=== PATIENT | male | born 1935 | race Two or more races ===

== ENCOUNTER 2024-03-03 14:48 | Inpatient (IN) | payer OTHER ==
[~2024-03-03] VITALS: Ht 167.6 cm; Wt 56.2 kg
[2024-03-03] MEDS: SODIUM CHLORIDE 0.9% 1,000 ML IV ONE ×4 (15:06→17:28)
[2024-03-03 15:17] VITALS: PULSE 66; RESP 22; O2SAT 97
[2024-03-03 15:44] LABS: Hematocrit 28.3 % (41.0-53.0); Mean Corpuscular Hemoglobin 33.8 pg (28.0-32.0); Mean Corpuscular Hgb Conc. 35.3 g/dL (32.0-36.0); Mean Corpuscular Volume 95.9 fL (80.0-100.0); Platelet Count (auto) 244 10^3/uL (140-450); Red Blood Cells 2.95 10^6/uL (4.5-5.90); Red Cell Distribution Width 17.8 % (11.8-14.3); White Blood Cell 11.7 10^3/uL (4.4-10.8)
[2024-03-03 15:50] LABS: Basophils % (manual) 0 (0.0-2.0); Blast Cells 0; Eosinophils % (manual) 0 (0-7); Metamyelocytes % 0; Myelocytes % 0; Promyelocytes % 0; Reactive Lymphocytes 0
[2024-03-03] MEDS: metroNIDAZOLE 500MG/100ML 100 ML IV ONE (16:00)
[2024-03-03 16:03] LABS: Alanine Aminotransferase 34 U/L (7-40); Albumin 2.8 g/dL (3.2-4.8); Alkaline Phosphatase 85 U/L (46-116); Anion Gap 5 (5-15); Aspartate Aminotransferase 23 U/L (13-40); BUN/Creatinine Ratio 14.8 (10.0-20.0); Bilirubin, Total 0.9 mg/dL (0.2-1.0); Blood Urea Nitrogen 13 mg/dL (9-23); Calcium 8.6 mg/dL (8.7-10.4); Carbon Dioxide 27 mmol/L (20-30); Chloride 95 mmol/L (98-107); Glucose 125 mg/dL (74-106); Potassium 4.2 mmol/L (3.5-5.1); Sodium 127 mmol/L (136-145); Total Protein 4.6 g/dL (5.7-8.2)
[2024-03-03 16:07] LABS: Lactic Acid w/Reflex 3.6 mmol/L (0.4-2.0)
[2024-03-03 16:59] LABS: Anisocytosis Slight; Band Neutrophils % (manual) 5; Lymphocytes % (manual) 14 (10.0-50.0); Monocytes % (manual) 4 (0-12); Platelet Estimate Adequate
[2024-03-03] MEDS: cefTRIAXone 1GM/50ML D5W 50 ML IV SCH (17:50)
[2024-03-03 17:55] LABS: Urine Bacteria None Seen /hpf (None Seen)
[2024-03-03 18:11] LABS: Urine Blood Negative /uL (Negative); Urine Clarity Clear (Clear); Urine Color Light-Yellow (Yellow); Urine Protein, UAD Negative (Negative); Urine Specific Gravity 1.009 (1.001-1.035); Urine Urobilinogen Normal (Negative); Urine WBC 2 /hpf (0 - 3); Urine pH 6.5 (5.0-9.0)
[2024-03-03 18:15] LABS: % Iron Saturation 24.3 % (20-55)
[2024-03-03] MEDS ORDERED: DOCUSATE SOD 100 MG CAP PO PRN (18:45)
[2024-03-03] MEDS ORDERED: HYDROmorphone HCL 2 MG/ML VL/or syr IV PRN (18:45)
[2024-03-03] MEDS ORDERED: HYDROcodone-ACET 5/325MG TAB PO PRN (18:45)
[2024-03-03] MEDS ORDERED: ACETAMINOPHEN 325 MG TAB PO PRN (18:45)
[2024-03-03] MEDS ORDERED: ONDANSETRON HCL 4 MG/2 ML VIAL IV PRN (18:45)
[2024-03-03] MEDS ORDERED: MAALOX PLUS or MAALOX 30 ML PO PRN (18:45)
[2024-03-03 18:52] LABS: Erythrocyte Sedimentation Rate 20 mm/hr (0-20)
[2024-03-03 19:30] VITALS: PULSE 71; RESP 20; O2SAT 99
[2024-03-03] MEDS: IOHEXOL 300 MG/ML 100ML BOTTLE IJ ONE (20:47)
[2024-03-03] MEDS: SODIUM CHLOR 0.9% PF (SALINE LOCK) 10ML VIAL/SYR IV SCH (22:00)
[2024-03-03] MEDS: metroNIDAZOLE 500MG/100ML 100 ML IV SCH (22:07)
[2024-03-03 22:42] VITALS: BP 95/51; PULSE 65; RESP 17; TEMP 97.5; O2SAT 96
[2024-03-04] VITALS (8 sets, daily range): BP systolic 99–123; BP diastolic 52–63; PULSE 61–88; RESP 16–18; TEMP 97.3–98.4; O2SAT 94–97
[2024-03-04] MEDS ORDERED: GLIMEPIRIDE 2 MG TAB PO SCH (07:00)
[2024-03-04] MEDS ORDERED: ISOS10TA5 PO (07:18)
[2024-03-04] MEDS ORDERED: IRBE300T43 PO (07:18)
[2024-03-04] MEDS ORDERED: CLOP75TA28 PO (07:18)
[2024-03-04] MEDS ORDERED: FINA5TAB4 PO (07:18)
[2024-03-04] MEDS ORDERED: GLIM2TAB33 PO (07:18)
[2024-03-04] MEDS ORDERED: CARV-216 OR (07:18)
[2024-03-04] MEDS: FERROUS SULFATE 325mg EC TAB PO SCH (09:25)
[2024-03-04] MEDS ORDERED: CLOPIDOGREL BISULFATE 75 MG TAB PO SCH (10:00)
[2024-03-04] MEDS ORDERED: FINASTERIDE 5 MG TAB PO SCH (10:00)
[2024-03-04] MEDS ORDERED: ISOSORBIDE MONONITRATE 20 MG TAB PO SCH (10:00)
[2024-03-04] MEDS ORDERED: SODIUM CHLORIDE 1 GM TAB PO SCH (10:00)
[2024-03-04] MEDS ORDERED: CARVEDILOL 12.5 MG TAB PO SCH (10:00)
[2024-03-05 01:00] VITALS: BP 107/58; PULSE 69; RESP 18; TEMP 98; O2SAT 95
[2024-03-05 05:00] VITALS: BP 122/71; PULSE 71; RESP 18; TEMP 98; O2SAT 94
[2024-03-05] MEDS ORDERED: CIPR-173 PO (08:46)
[2024-03-05] MEDS ORDERED: TAMS-35 PO (08:46)
[2024-03-05 08:52] VITALS: BP 106/47; PULSE 71; RESP 17; TEMP 98.2; O2SAT 99
[2024-03-05 12:36] VITALS: BP 134/63; PULSE 74; RESP 18; TEMP 98.7; O2SAT 97
[2024-03-05 16:56] VITALS: BP 99/50; PULSE 77; RESP 16; TEMP 97.2; O2SAT 96
[2024-03-05 18:25] VITALS: TEMP 36.2
== END 2024-03-05 19:00 | disposition home or self-care (01) | DRG 690 ==
LOC: ER 14:48 → OVERFLOW 18:41 → CENTRAL 22:35
PROVIDERS: ADMIT Internal Medicine; ATTEND Family Medicine
DX: N30.00 Acute cystitis without hematuria (principal); E87.21 Acute metabolic acidosis; E86.0 Dehydration; N40.1 Benign prostatic hyperplasia with lower urinary tract symptoms; N20.0 Calculus of kidney; R33.8 Other retention of urine; I10 Essential (primary) hypertension; E11.9 Type 2 diabetes mellitus without complications; F17.210 Nicotine dependence, cigarettes, uncomplicated; D64.9 Anemia, unspecified; N32.9 Bladder disorder, unspecified; E78.00 Pure hypercholesterolemia, unspecified; I25.2 Old myocardial infarction; Z79.84 Long term (current) use of oral hypoglycemic drugs; Z79.899 Other long term (current) drug therapy; Z83.3 Family history of diabetes mellitus
CPT/HCPCS: 36415; 74176; 74177; 80053; 81001; 82728; 83540; 83550; 83605; 85007; 85027; 85652; 86141; 87040; 93005; 96361; 96365; 96366; 96367; 99291; G0378; J3490

== ENCOUNTER 2024-04-30 12:23 | Emergency (ER) | payer OTHER ==
[~2024-04-30] VITALS: Ht 162.6 cm; Wt 53.2 kg
[~2024-04-30 12:23] MED LIST: CARV-216 OR; CIPR-173 PO; CLOP75TA28 PO; FINA5TAB4 PO; GLIM2TAB33 PO; IRBE300T43 PO; ISOS10TA5 PO; TAMS-35 PO
[2024-04-30 12:56] LABS: Basophils # (auto) 0.1 10 ^3/uL (0-0.2); Basophils % (auto) 0.9 % (0.0-2.0); Eosinophils # (auto) 0.3 10 ^3/uL (0-0.8); Eosinophils % (auto) 2.6 % (0.0-7.0); Hematocrit 34.3 % (41.0-53.0); Hemoglobin 11.9 g/dL (13.5-17.5); Lymphocytes # (auto) 1.6 10 ^3/uL (0.4-5.4); Lymphocytes % (auto) 15.4 % (10.0-50.0); Mean Corpuscular Hemoglobin 31.3 pg (28.0-32.0); Mean Corpuscular Hgb Conc. 34.7 g/dL (32.0-36.0); Mean Corpuscular Volume 90.3 fL (80.0-100.0); Monocytes # (auto) 0.5 10 ^3/uL (0-1.3); Monocytes % (auto) 4.7 % (0.0-12.0); Neutrophils # (auto) 7.8 10 ^3/uL (1.6-8.6); Neutrophils % (auto) 76.4 % (37.0-80.0); Nucleated Red Blood Cells % 0.1 %; Platelet Count (auto) 340 10^3/uL (140-450); Red Cell Distribution Width 14.1 % (11.8-14.3); White Blood Cell 10.3 10^3/uL (4.4-10.8)
[2024-04-30 13:14] LABS: Albumin 3.5 g/dL (3.2-4.8); Alkaline Phosphatase 99 U/L (46-116); Anion Gap 7 (5-15); Aspartate Aminotransferase 19 U/L (13-40); BUN/Creatinine Ratio 12.3 (10.0-20.0); Bilirubin, Total 0.3 mg/dL (0.2-1.0); Blood Urea Nitrogen 10 mg/dL (9-23); Calcium 9.1 mg/dL (8.7-10.4); Carbon Dioxide 25 mmol/L (20-31); Chloride 104 mmol/L (98-107); Glucose 132 mg/dL (74-106); Magnesium 1.5 mg/dL (1.6-2.6); Potassium 4.4 mmol/L (3.5-5.1); Sodium 136 mmol/L (136-145); Total Protein 6.4 g/dL (5.7-8.2)
[2024-04-30 13:25] LABS: Alanine Aminotransferase < 9 U/L (7-40)
[2024-04-30 14:00] VITALS: PULSE 76; RESP 16; O2SAT 95
[2024-04-30] MEDS: ASPirin 81 mg TAB PO ONE (14:54)
[2024-04-30 15:05] LABS: Triglycerides 114 mg/dL (< 150)
[2024-04-30 15:06] LABS: LDL Cholesterol 84 mg/dL (< 100)
[2024-04-30 15:07] LABS: Cholesterol 134 mg/dL (< 200); HDL Cholesterol 29 mg/dL (40-59)
[2024-04-30] MEDS: MAGNESIUM SULFATE 1GM/100ML 100 ML IV SCH (16:10)
[2024-04-30] MEDS ORDERED: CARV-214 PO (16:41)
[2024-04-30] MEDS ORDERED: ISOS10TA5 PO (16:41)
[2024-04-30] MEDS ORDERED: PRED20TA2 PO (16:41)
[2024-04-30] MEDS ORDERED: ATOR20TA50 PO (16:41)
[2024-04-30] MEDS ORDERED: AUG875T PO (16:41)
[2024-04-30] MEDS ORDERED: BENZ100C97 PO (16:42)
[2024-04-30] MEDS ORDERED: IPRA0.00 IN (16:47)
[2024-04-30] MEDS ORDERED: ALBUAER3 IN (16:50)
[2024-04-30] MEDS: IPRATROPIUM BROM 0.5 MG/2.5ML INH SOL NEB ONE (16:55)
[2024-04-30] MEDS: ALBUTEROL SULF 2.5 MG/0.5ML(0.5%) NEB SOLN NEB ONE (16:56)
[2024-04-30] MEDS: guaiFENesin 200 MG/10 ML UD PO ONE (17:25)
[2024-04-30] MEDS: methylPREDNISolone SOD SUCC 125 MG/2 ML VL IV ONE (17:25)
[2024-04-30] MEDS: cefTRIAXone 1GM/50ML D5W 50 ML IV ONE (17:25)
[2024-04-30 17:38] LABS: COVID19 ANTIGEN SOFIA FIA NEGATIVE (NEGATIVE)
[2024-04-30 19:26] VITALS: BP 128/62; PULSE 74; RESP 16; TEMP 97.8; O2SAT 99
[2024-04-30] MEDS ORDERED: CARVEDILOL 3.125 MG TAB PO SCH (22:00)
[2024-04-30] MEDS ORDERED: ATORVASTATIN 20 MG TAB PO SCH (22:00)
[2024-05-01] MEDS ORDERED: CLOPIDOGREL BISULFATE 75 MG TAB PO SCH (10:00)
== END 2024-04-30 19:50 | disposition home or self-care (01) ==
LOC: ER 12:23
DX: R07.89 Other chest pain (principal); I25.10 Atherosclerotic heart disease of native coronary artery without angina pectoris; E11.9 Type 2 diabetes mellitus without complications; E78.5 Hyperlipidemia, unspecified; I10 Essential (primary) hypertension; I25.2 Old myocardial infarction; Z79.02 Long term (current) use of antithrombotics/antiplatelets; Z79.52 Long term (current) use of systemic steroids; Z87.891 Personal history of nicotine dependence; Z95.5 Presence of coronary angioplasty implant and graft; Z99.81 Dependence on supplemental oxygen; Z20.822 Contact with and (suspected) exposure to COVID-19
CPT/HCPCS: 36415; 71046; 80053; 80061; 83036; 83735; 84443; 84484; 85025; 87426; 93005; 94640; 96365; 96366; 96368; 96375; 99285; J0696; J2919; J3475